=== PATIENT | male | born 1965 | race Hispanic/Latino ===

== ENCOUNTER → 2017-10-08 | Outpatient (CLI) | payer MEDICARE, OTHER ==
[~2017-10-08] MED LIST: ASPI-555 PO; ATOR40TA69 PO; CARV12.580 PO; FOLI1TAB61 PO; GLIP10TA9 PO; INSLAN SQ; LACT10SO9 PO; LISI10TA7 PO; PHOSLOC PO; RANO500T3 PO; SUCR500T PO
== END | disposition home or self-care (01) ==
LOC: SHCH 10:44
PROVIDERS: ATTEND Internal Medicine Cardiovascular Disease
DX: I10 Essential (primary) hypertension (principal); Z95.1 Presence of aortocoronary bypass graft
CPT/HCPCS: 93306

== ENCOUNTER → 2018-05-23 | Outpatient (CLI) | payer MEDICARE, OTHER | END | disposition home or self-care (01) | LOC: RAH 12:55 | PROVIDERS: ATTEND Family Medicine | DX: L98.499 Non-pressure chronic ulcer of skin of other sites with unspecified severity (principal); I12.0 Hypertensive chronic kidney disease with stage 5 chronic kidney disease or end stage renal disease; E11.22 Type 2 diabetes mellitus with diabetic chronic kidney disease; I25.10 Atherosclerotic heart disease of native coronary artery without angina pectoris; N18.6 End stage renal disease; I48.91 Unspecified atrial fibrillation | CPT/HCPCS: 73218 ==

== ENCOUNTER → 2018-05-24 | Outpatient (CLI) | payer MEDICARE, OTHER ==
[2018-05-24 16:01] VITALS: BP 142/59
== END | disposition home or self-care (01) ==
LOC: WHH 14:00
PROVIDERS: ATTEND Family Medicine
DX: T81.89XD Other complications of procedures, not elsewhere classified, subsequent encounter (principal); E11.622 Type 2 diabetes mellitus with other skin ulcer; L98.491 Non-pressure chronic ulcer of skin of other sites limited to breakdown of skin; B95.62 Methicillin resistant Staphylococcus aureus infection as the cause of diseases classified elsewhere; I48.91 Unspecified atrial fibrillation; I25.10 Atherosclerotic heart disease of native coronary artery without angina pectoris; F41.9 Anxiety disorder, unspecified; E11.22 Type 2 diabetes mellitus with diabetic chronic kidney disease; I12.0 Hypertensive chronic kidney disease with stage 5 chronic kidney disease or end stage renal disease; N18.6 End stage renal disease; E11.51 Type 2 diabetes mellitus with diabetic peripheral angiopathy without gangrene; Z95.1 Presence of aortocoronary bypass graft; Z99.2 Dependence on renal dialysis; Y83.8 Other surgical procedures as the cause of abnormal reaction of the patient, or of later complication, without mention of misadventure at the time of the procedure
CPT/HCPCS: 11042

== ENCOUNTER 2019-02-06 22:32 | Inpatient (IN) | payer MEDICARE, OTHER | END 2019-02-10 14:44 | disposition home or self-care (01) | LOC: EDH 22:32 → EDHIP 02-07 00:20 → 2DH 02-07 16:35 | DX: I16.0 Hypertensive urgency (principal); N18.6 End stage renal disease; Z99.2 Dependence on renal dialysis; E11.22 Type 2 diabetes mellitus with diabetic chronic kidney disease; I12.0 Hypertensive chronic kidney disease with stage 5 chronic kidney disease or end stage renal disease ==

== ENCOUNTER → 2019-07-11 | Outpatient (CLI) | payer MEDICARE, OTHER ==
[~2019-07-11] MED LIST changes: -ASPI-555 PO; -ATOR40TA69 PO; -CARV12.580 PO; +CARV25TA PO; -FOLI1TAB61 PO; +HYDR-4154 PO; -LACT10SO9 PO; -LISI10TA7 PO; +LOSA100T58 PO; +METO5TAB2 PO; +NITR0.4T50 SL; -PHOSLOC PO; -RANO500T3 PO; +RIVA15TA PO; +SERT25TA5 PO
== END | disposition home or self-care (01) ==
LOC: SHCH 09:59
PROVIDERS: ATTEND Internal Medicine Cardiovascular Disease
DX: I87.2 Venous insufficiency (chronic) (peripheral) (principal); R59.0 Localized enlarged lymph nodes
CPT/HCPCS: 93970

== ENCOUNTER → 2019-09-29 | Outpatient (CLI) | payer MEDICARE, OTHER | END | disposition home or self-care (01) | LOC: RAH 14:27 | PROVIDERS: ATTEND Internal Medicine Nephrology | DX: M19.071 Primary osteoarthritis, right ankle and foot (principal) | CPT/HCPCS: 73610; 73630 ==

== ENCOUNTER 2019-12-11 07:33 | Inpatient (IN) | payer MEDICARE, OTHER ==
[~2019-12-11] VITALS: Ht 170.2 cm; Wt 90.3 kg
[2019-12-11 08:20] LABS: BASOPHILS % (AUTO) 0.3 % (0.0-5.0); EOSINOPHILS % (AUTO) 2.2 % (0.0-8.0); LYMPHOCYTES % (AUTO) 17.9 % (21.0-51.0); MEAN CORPUSCULAR HGB CONC 32.2 g/dL (32.0-36.0); MONOCYTES % (AUTO) 8.5 % (3.0-13.0); NEUTROPHILS % (AUTO) 70.7 % (40.0-77.0); PLATELET COUNT (AUTO) 154 K/uL (130-400); RED BLOOD CELL COUNT(AUTO) 3.87 MIL/uL (4.50-6.20); RED CELL DISTRIBUTION WIDTH 14.7 % (11.0-15.5); WHITE BLOOD COUNT (AUTO) 6.9 K/uL (4.8-10.8)
[2019-12-11] MEDS ORDERED: MORPHINE SULFATE 4 MG/1ML SYG ONE ×2 (08:59→10:33)
[2019-12-11 09:42] LABS: BILIRUBIN,TOTAL 0.5 mg/dL (0.2-1.0); POTASSIUM 4.1 mmol/L (3.5-5.1); TOTAL PROTEIN, SERUM 8.4 g/dL (6.0-8.3)
[2019-12-11 09:44] LABS: CREATININE 7.9 mg/dL (0.5-1.5)
[2019-12-11] MEDS ORDERED: ACETAMINOPHEN 325 MG TAB PO PRN (12:15)
[2019-12-11] MEDS ORDERED: HYDROMORPHONE 1 MG/1 ML AMP IVP PRN (12:15)
[2019-12-11] MEDS ORDERED: SODIUM CHLORIDE 0.9% 10 ML VIAL IVP PRN (12:15)
[2019-12-11] MEDS ORDERED: ONDANSETRON HCL 4 MG/2 ML VIAL IVP PRN (12:15)
[2019-12-11] MEDS ORDERED: ONDANSETRON HCL 4 MG/2 ML VIAL ONE (12:40)
[2019-12-11] MEDS ORDERED: HYDROMORPHONE 1 MG/1 ML AMP ONE (12:41)
[2019-12-11 13:30] VITALS: BP 192/49
[2019-12-11] MEDS: ZOSYN 3.375GM+NS 50ML 50 ML IV SCH (13:58)
[2019-12-11 16:00] VITALS: BP 151/49
--- NOTE | 2019-12-11 16:24 | NUR ---
INITIAL SW spoke with patient. Patient states he lives with spouse, Sera Elaine, [phone]. Another emergency contact is daughter, Sera Elaine, [phone]. No home health but does have PHC with [facility] hours. Dialysis: MWF at 5:30am at [facility] in [place]. Daughter helps with transportation to and from dialysis. DME: [facility], glucometer (uses insulin). Patient states he needs help to complete ADL's due to being legally blind for the past year. Family assists with transportation for patient. PCP is Dr. Figueroa Quintana. Pharmacy is [facility] located on [address] in [place]. DCP is home. Addendum: 12/11/19 at 1629 by TIFFANIE MARTIN SS Amended: Links added.
[2019-12-11] MEDS: INSULIN R PO SS1 SQ SCH ×2 (16:30→21:00)
[2019-12-11] MEDS ORDERED: NALOXONE HCL 0.4 MG/1 ML ML IVP PRN (19:00)
--- NOTE | 2019-12-11 19:20 | NUR ---
TELE MONITOR PLACED AT THIS TIME. SINUS RHYTHM 73 ON THE MONITOR. NO S/S OF DISTRESS. PT LAYING IN BED, BED LOCKED IN LOWEST POSITION, ORIENTED TO CALL [employer].
[2019-12-11 20:00] VITALS: BP 169/62
[2019-12-12] VITALS (25 sets, daily range): BP systolic 107–166; BP diastolic 29–77
--- NOTE | 2019-12-12 01:24 | NUR ---
PAIN PATIENT C/O PAIN TO GROIN AREA. UNABLE TOADMINISTER PAIN MEDICATIONS PER DR. MORALES'S ORDRE AT THIS TIME. WILL ADMINISTER MEDS ONCE APPROPRIATE TO DO SO. SITTING OUTSIDE OF PATIENT'S DOORWAY, CLOSELY MONITORING PT. PT REPORTS WHEN HE STANDS UP HE FEELS DECREASE PRESSURE TO GROIN AREA. ASSISTING PT TO STAND AND SIT. RAIL PADS PLACED TO X3 RAILS FOR SAFETY PRECAUTIONS. PT IS BLIND AND NEEDS ASSISTANCE TO GET BACK INTO BED SAFELY.
[2019-12-12] MEDS: ZOSYN 3.375GM+NS 50ML 50 ML IV SCH ×2 (02:08→13:23)
[2019-12-12 05:30] LABS: HEMATOCRIT 37.4 % (42-54); MEAN CORPUSCULAR HGB CONC 32.4 g/dL (32.0-36.0); MEAN CORPUSCULAR VOLUME 95.9 fL (79-99); PLATELET COUNT (AUTO) 165 K/uL (130-400); WHITE BLOOD COUNT (AUTO) 8.3 K/uL (4.8-10.8)
[2019-12-12 05:54] LABS: ALBUMIN 4.1 g/dL (3.5-5.0); BILIRUBIN,TOTAL 0.8 mg/dL (0.2-1.0); CREATININE 6.6 mg/dL (0.5-1.5); MAGNESIUM 2.2 mg/dL (1.80-2.40); PHOSPHORUS 6.3 mg/dL (2.5-4.9); POTASSIUM 3.9 mmol/L (3.5-5.1); TOTAL PROTEIN, SERUM 8.7 g/dL (6.0-8.3)
[2019-12-12] MEDS: INSULIN R PO SS1 SQ SCH ×4 (05:54→22:30)
[2019-12-12 06:03] LABS: INR 1.07 (0.85-1.15); PROTHROMBIN TIME 11.5 SEC (9.6-11.6)
[2019-12-12 07:11] LABS: HEPATITIS A ANTIBODY IGM Negative (Negative); HEPATITIS B CORE IGM Negative (Negative); HEPATITIS Bs ANTIGEN SCREEN P Negative (Negative)
--- NOTE | 2019-12-12 08:14 | NUR ---
TO OR NOW, CALLED SPOUSE AND LEFT VOICE MAIL. ALSO PLACED CALL TO DAUGHTER DANY, NO ANSWER AND VOICE MAIL HAS NOT BEEN SET UP
[2019-12-12] MEDS ORDERED: SODIUM CHLORIDE 0.9% 1000ML 1,000 ML IV ONE (08:15)
[2019-12-12] MEDS: FAMOTIDINE/PF 20 MG/2 ML VIAL IV SCH (09:00)
[2019-12-12] MEDS ORDERED: ONDANSETRON HCL 4 MG/2 ML VIAL ONE (09:46)
[2019-12-12] MEDS ORDERED: BACITRACIN 28.4 GM OINT TP ONE (10:34)
--- NOTE | 2019-12-12 12:22 | NUR ---
HOME MEDS HAVE ALREADY BEEN RESUMED.
--- NOTE | 2019-12-12 12:32 | NUR ---
POST OP NOTES: BACK IN ROOM, DROWSY BUT AROUSES EASY IV FLUIDS IN PROGRESS, CONNELL CATH IN PLACE AND DRAINING CLEAR YELLOW URINE TO GRAVITY. FLUFFY DRESSING IN PLACE TO PENILE AREA WITH A SMALL AMT OF BLOOD. WILL MONITOR FOR BLEEDING. BP 140/72 HR 67 20
--- NOTE | 2019-12-12 12:51 | NUR ---
SPOUSE CALLED AND POST OP UPDATE GIVEN.
--- NOTE | 2019-12-12 15:25 | NUR ---
Nutrition consult based on trigger. Pt. S/P partial Penectomy(12/12/2019). Pt. asleep during RD visit. Pt. on Renal Dialysis diet. As per nurse Joellen, pt. was NPO in the morning for procedure and has been asleep since he got back from the procedure. Labs reviewed(BUN 40, Creat 6.6, GFR 9, PHOS 6.3, Alb 4.1). SR-19, elastic. LBM: 12/11/2019. BMI: 30.7, Obesity Grade 1. Recommendations: 1) Rec. 75gm CCD Renal Dialysis diet. 2) Rec. phos binder Renvela 1 TID with meals due to elevated PHOS level. 3) Continue to monitor pt's nutritional status. 4) Consult RD as nutrition concerns arise. Addendum: 12/12/19 at [address] Amended: Links added.
--- NOTE | 2019-12-12 18:00 | NUR ---
HAS BEEN OUT OF BED AND SAT IN CHAIR, NO C/O OF PAIN TO SURGICAL AREA NO FURTHER BLEEDING NOTED
[2019-12-12] MEDS: ACETAMINOPHEN-CODEINE 300/30MG TAB PO PRN (20:13)
[2019-12-13] VITALS (7 sets, daily range): BP systolic 100–187; BP diastolic 40–78
[2019-12-13] MEDS: ZOSYN 3.375GM+NS 50ML 50 ML IV SCH ×2 (02:32→14:47)
[2019-12-13] MEDS: ACETAMINOPHEN-CODEINE 300/30MG TAB PO PRN ×2 (05:32→19:01)
[2019-12-13 05:57] LABS: HEMATOCRIT 36.7 % (42-54); MEAN CORPUSCULAR HGB CONC 31.1 g/dL (32.0-36.0); MEAN CORPUSCULAR VOLUME 96.6 fL (79-99); PLATELET COUNT (AUTO) 145 K/uL (130-400); WHITE BLOOD COUNT (AUTO) 11.6 K/uL (4.8-10.8)
[2019-12-13 06:10] LABS: BAND NEUTROPHILS % (MANUAL) 1 % (0-2); LYMPHOCYTES % (MANUAL) 15 % (22-44); MAN.DIFF COMMENT-IMPRESSION MANUAL DIFFERENTIAL; MONOCYTES % (MANUAL) 9 % (2-9); PHOSPHORUS 8.9 mg/dL (2.5-4.9); PLATELET MORPHOLOGY COMMENT ADEQUATE; POTASSIUM 4.6 mmol/L (3.5-5.1); SEGMENTED NEUTROPHILS % 75 % (40-70)
[2019-12-13 06:17] LABS: CREATININE 8.4 mg/dL (0.5-1.5)
[2019-12-13] MEDS: INSULIN R PO SS1 SQ SCH ×5 (06:42→20:01)
[2019-12-13] MEDS: FAMOTIDINE/PF 20 MG/2 ML VIAL IV SCH (08:22)
--- NOTE | 2019-12-13 11:50 | NUR ---
PAIN MEDICATION tylenol #3 given at 1150 po could not scan medicatin scanner not working
--- NOTE | 2019-12-13 18:03 | NUR ---
Patient requesting medication for constipation, stating he normally take lactulose. Paged Dr. Williamson, databases computer consultant for Dr. Quintana.
[2019-12-13] MEDS ORDERED: LACTULOSE 20 GM/30 ML UDCUP PO PRN (18:15)
[2019-12-14] MEDS: ACETAMINOPHEN-CODEINE 300/30MG TAB PO PRN (01:28)
[2019-12-14] MEDS: ZOSYN 3.375GM+NS 50ML 50 ML IV SCH ×2 (01:28→13:42)
[2019-12-14 03:00] VITALS: BP 122/48
[2019-12-14 05:00] LABS: MEAN CORPUSCULAR HEMOGLOBIN 31.6 pg (27.0-33.0); MEAN CORPUSCULAR HGB CONC 32.4 g/dL (32.0-36.0); MEAN CORPUSCULAR VOLUME 97.3 fL (79-99); PLATELET COUNT (AUTO) 130 K/uL (130-400); RED BLOOD CELL COUNT(AUTO) 3.39 MIL/uL (4.50-6.20); RED CELL DISTRIBUTION WIDTH 14.8 % (11.0-15.5); WHITE BLOOD COUNT (AUTO) 11.1 K/uL (4.8-10.8)
[2019-12-14 05:26] LABS: POTASSIUM 3.9 mmol/L (3.5-5.1)
[2019-12-14] MEDS: INSULIN R PO SS1 SQ SCH ×2 (05:49→12:03)
[2019-12-14 07:21] LABS: EOSINOPHILS % (MANUAL) 2 % (1-6); LYMPHOCYTES % (MANUAL) 11 % (22-44); MONOCYTES % (MANUAL) 5 % (2-9); SEGMENTED NEUTROPHILS % 82 % (40-70)
[2019-12-14 07:22] LABS: MAN.DIFF COMMENT-IMPRESSION MANUAL DIFFERENTIAL
[2019-12-14 07:24] LABS: PLATELET MORPHOLOGY COMMENT ADEQUATE
[2019-12-14 08:17] VITALS: BP 184/62
[2019-12-14] MEDS: FAMOTIDINE/PF 20 MG/2 ML VIAL IV SCH (08:32)
--- NOTE | 2019-12-14 11:00 | NUR ---
DR FINGER VISIT, CONNELL CATHETER DC'D PER DR'S ORDER, PENIS CLEANSE WITH BETADINE AND BACTROBAN APARNA APPLIED TO SURGERY SITE.
[2019-12-14 11:25] VITALS: BP 104/51
[2019-12-14 15:55] VITALS: BP 133/60
--- NOTE | 2019-12-14 16:44 | NUR ---
PATIENT WAITING FOR HIS RIDE.
[2020-03-06] MEDS ORDERED: ATOR40TA71 PO (15:11)
[2020-03-06] MEDS ORDERED: CILO50TA PO (15:11)
== END 2019-12-14 17:30 | disposition home or self-care (01) | DRG 709 ==
LOC: EDH 07:33 → EDHIP 11:54 → 3DH 13:08
PROVIDERS: ADMIT Internal Medicine Nephrology; ATTEND Internal Medicine Nephrology
PROC: 5A1D70Z Performance of Urinary Filtration, Intermittent, Less than 6 Hours Per Day (ICD-10-PCS; 2019-12-11)
PROC: 0VBSXZZ Excision of Penis, External Approach (ICD-10-PCS; principal; 2019-12-12 09:00)
PROC: 5A1D70Z Performance of Urinary Filtration, Intermittent, Less than 6 Hours Per Day (ICD-10-PCS; 2019-12-13)
DX: N48.29 Other inflammatory disorders of penis (principal); N18.6 End stage renal disease; I12.0 Hypertensive chronic kidney disease with stage 5 chronic kidney disease or end stage renal disease; E83.59 Other disorders of calcium metabolism; Z99.2 Dependence on renal dialysis; D64.9 Anemia, unspecified; E11.22 Type 2 diabetes mellitus with diabetic chronic kidney disease; E78.5 Hyperlipidemia, unspecified; E83.39 Other disorders of phosphorus metabolism; H54.7 Unspecified visual loss; I25.10 Atherosclerotic heart disease of native coronary artery without angina pectoris; Z91.11 Patient's noncompliance with dietary regimen; Z95.1 Presence of aortocoronary bypass graft
CPT/HCPCS: 36415; 76870; 80048; 80053; 80074; 82948; 83735; 84100; 85025; 85027; 85610; 87040; 88304; 90935; A4606; G0378; J1170; J1815; J2270; J2405; J2543; J3490; J7030

== ENCOUNTER 2020-03-07 06:42 | Day surgery (SDC) | payer MEDICARE, OTHER ==
[2020-03-01 15:02] LABS: BASOPHILS % (AUTO) 0.5 % (0.0-5.0); EOSINOPHILS % (AUTO) 2.6 % (0.0-8.0); HEMATOCRIT 34.8 % (42-54); LYMPHOCYTES % (AUTO) 16.4 % (21.0-51.0); MEAN CORPUSCULAR HEMOGLOBIN 30.1 pg (27.0-33.0); MEAN CORPUSCULAR HGB CONC 31.9 g/dL (32.0-36.0); MEAN CORPUSCULAR VOLUME 94.3 fL (79-99); MONOCYTES % (AUTO) 8.7 % (3.0-13.0); NEUTROPHILS % (AUTO) 71.3 % (40.0-77.0); PLATELET COUNT (AUTO) 216 K/uL (130-400); RED BLOOD CELL COUNT(AUTO) 3.69 MIL/uL (4.50-6.20); RED CELL DISTRIBUTION WIDTH 14.7 % (11.0-15.5); WHITE BLOOD COUNT (AUTO) 7.7 K/uL (4.8-10.8)
[2020-03-01 15:11] LABS: CREATININE 4.5 mg/dL (0.5-1.5)
[2020-03-01 15:15] LABS: INR 1.18 (0.85-1.15); PARTIAL THROMBOPLASTIN TIME 31.2 SEC (26.3-35.5); PROTHROMBIN TIME 12.7 SEC (9.6-11.6)
[2020-03-03 14:23] VITALS: BP 147/56
[2020-03-07] VITALS (19 sets, daily range): BP systolic 104–167; BP diastolic 28–63
[~2020-03-07] VITALS: Ht 170.2 cm; Wt 90.4 kg
[~2020-03-07 06:42] MED LIST changes: +ATOR40TA71 PO; +CILO50TA PO; -LOSA100T58 PO; -METO5TAB2 PO; -NITR0.4T50 SL
[2020-03-07] MEDS ORDERED: CEFAZOLIN SODIUM 1 GM VIAL ONE ×2 (07:53→08:46)
[2020-03-07] MEDS ORDERED: SODIUM CHLORIDE 0.9% 500ML 500 ML IV ONE (07:53)
[2020-03-07] MEDS ORDERED: SODIUM CHLORIDE 0.9% 1000ML 1,000 ML IV ONE (09:19)
[2020-03-07] MEDS ORDERED: LIDOCAINE PF 2% 5ML ABBOJECT ONE (10:07)
[2020-03-07] MEDS ORDERED: PROPOFOL 10 MG/ML 20ML VIAL IV ONE (10:07)
[2020-03-07] MEDS ORDERED: MIDAZOLAM HCL 1 MG/ML 2ML VIAL ONE (10:07)
[2020-03-07] MEDS ORDERED: ONDANSETRON HCL 4 MG/2 ML VIAL ONE (10:08)
[2020-03-07] MEDS ORDERED: FENTANYL CITRATE PF 50 MCG/1 ML 2ML VIAL ONE (10:08)
[2020-03-07] MEDS: CEFAZOLIN SODIUM 1 GM VIAL ONE ×2 (10:15→12:45)
[2020-03-07] MEDS ORDERED: DURAMORPH PF1 MG/ML 10ML AMP IV ONE (10:21)
[2020-03-07] MEDS ORDERED: EPHEDRINE SULFATE 50 MG/ML AMPULE ONE (10:30)
[2020-03-07] MEDS ORDERED: ALBUMIN (HUMAN) 25% 100 ML IV ONE (10:36)
[2020-03-07] MEDS ORDERED: BUPIVACAINE/PF 0.25% 30ML VIAL IJ ONE (10:57)
[2020-03-07] MEDS ORDERED: BACITRACIN 28.4 GM OINT TP ONE (12:31)
[2020-03-07] MEDS ORDERED: DEXTROSE 50%-WATER 25 GM/50 ML VIAL ONE (13:03)
--- NOTE | 2020-03-07 14:00 | NUR ---
PT STABLE. DRESSING TO PENILE AREA CLEAN DRY INTACT. UROSTOMY PRESENT-SCANT URINE OUTPUT.
== END 2020-03-07 15:35 | disposition home or self-care (01) ==
LOC: DAH 06:42 → UNDOADMIN 06:42 → DAHIP 06:42 → DAH 15:35
PROVIDERS: ATTEND Urology
DX: N48.89 Other specified disorders of penis (principal); Z11.59 Encounter for screening for other viral diseases; I12.0 Hypertensive chronic kidney disease with stage 5 chronic kidney disease or end stage renal disease; E11.22 Type 2 diabetes mellitus with diabetic chronic kidney disease; N18.6 End stage renal disease; I25.10 Atherosclerotic heart disease of native coronary artery without angina pectoris; I73.9 Peripheral vascular disease, unspecified; Z79.4 Long term (current) use of insulin; Z79.84 Long term (current) use of oral hypoglycemic drugs; Z98.890 Other specified postprocedural states; Z79.899 Other long term (current) drug therapy; Z72.89 Other problems related to lifestyle; Z95.5 Presence of coronary angioplasty implant and graft; Z82.49 Family history of ischemic heart disease and other diseases of the circulatory system; Z83.3 Family history of diabetes mellitus; Z82.5 Family history of asthma and other chronic lower respiratory diseases; Z99.2 Dependence on renal dialysis
CPT/HCPCS: 36415 ×2; 54125; 71045; 80048; 82948 ×4; 84132; 85025; 85610; 85730; 88305; 93005; 99283; A4215; A4221; A4222; A4223; A4344; A4600; A4606; A4649; A4663; A4930; A6260; C1729; J0690 ×3; J2001; J2250; J2274; J2405; J2704; J3010; J3490 ×2; J7030 ×2; J7040; J7070; P9047; U0003

== ENCOUNTER 2020-03-07 21:58 | Emergency (ER) | payer MEDICARE, OTHER ==
[2020-03-07] MEDS ORDERED: ONDANSETRON ODT 4 MG TAB ONE (23:45)
== END 2020-03-07 23:52 | disposition home or self-care (01) ==
LOC: EDH 21:58
DX: N99.89 Other postprocedural complications and disorders of genitourinary system (principal); I12.0 Hypertensive chronic kidney disease with stage 5 chronic kidney disease or end stage renal disease; E11.22 Type 2 diabetes mellitus with diabetic chronic kidney disease; N18.6 End stage renal disease; Y83.8 Other surgical procedures as the cause of abnormal reaction of the patient, or of later complication, without mention of misadventure at the time of the procedure; Y92.89 Other specified places as the place of occurrence of the external cause